=== PATIENT | male | born 1965 | race Caucasian/White ===

== ENCOUNTER → 2019-06-10 | Outpatient (CLI) | payer OTHER ==
--- NOTE | 2019-06-10 12:45 | RAD ---
2 views of the left knee without comparison for left knee pain. FINDINGS: There is no fracture, dislocation, or acute osseous abnormality identified. Mild narrowing of the medial joint compartment is present, with no subchondral sclerosis, subchondral cysts, or osteophytes. Patellofemoral joint space is normal. No radiopaque foreign bodies. A couple of small cortical bone islands are seen in the distal femur. IMPRESSION: 1. No acute osseous abnormality. 2. Very early medial compartmental osteoarthritis. Electronically signed by: Cedrick Gonzalez MD (06/10/2019 12:42 PM) [id number]
== END | disposition home or self-care (01) ==
LOC: PMG 09:04
PROVIDERS: ATTEND Family Medicine
DX: S89.92XA Unspecified injury of left lower leg, initial encounter (principal); M17.12 Unilateral primary osteoarthritis, left knee; X58.XXXA Exposure to other specified factors, initial encounter; Y93.89 Activity, other specified; Y92.89 Other specified places as the place of occurrence of the external cause; Y99.8 Other external cause status
CPT/HCPCS: 73560

== ENCOUNTER → 2019-08-26 | Outpatient (CLI) | payer OTHER ==
--- NOTE | 2019-08-26 15:10 | RAD ---
EXAM: Left knee, 2 views. HISTORY: Pain. COMPARISON: 06/10/2019. FINDINGS: 2 views of the left knee are obtained. There are findings consistent with interval anterior cruciate ligament surgery. There is mild medial compartment joint space narrowing. There is a small joint effusion. There is prepatellar soft tissue prominence which may be due to swelling. IMPRESSION: 1. Interval left anterior cruciate ligament surgery. 2. Small left knee effusion. 3. Minimal left knee medial compartment osteoarthritis. Electronically signed by: Cheyanne Jackson MD (08/26/2019 12:51 PM) [facility]
== END ==
LOC: DXRAD 12:36
PROVIDERS: ATTEND Physician Assistant
DX: S83.204A Other tear of unspecified meniscus, current injury, left knee, initial encounter (principal); M25.462 Effusion, left knee; M17.12 Unilateral primary osteoarthritis, left knee; X58.XXXA Exposure to other specified factors, initial encounter; Y93.89 Activity, other specified; Y92.89 Other specified places as the place of occurrence of the external cause; Y99.8 Other external cause status
CPT/HCPCS: 73560